=== PATIENT | female | born 1960 | race African-American/Black ===

== ENCOUNTER 2016-03-28 23:43 | Emergency (ER) | payer MEDICAID ==
[~2016-03-28] VITALS: Ht 160 cm; Wt 63.5 kg
[~2016-03-28 23:43] MED LIST: ALBU18
[2016-03-29 07:37] VITALS: BP 161/81
== END 2016-03-29 08:59 | disposition home or self-care (01) ==
LOC: ER 23:47
DX: M19.042 Primary osteoarthritis, left hand (principal); J45.909 Unspecified asthma, uncomplicated; I10 Essential (primary) hypertension; J44.9 Chronic obstructive pulmonary disease, unspecified; F17.210 Nicotine dependence, cigarettes, uncomplicated; Z79.899 Other long term (current) drug therapy
CPT/HCPCS: 73130

== ENCOUNTER 2016-10-18 17:27 | Emergency (ER) | payer MEDICAID ==
[~2016-10-18] VITALS: Ht 160 cm; Wt 59.0 kg
[2016-10-18] MEDS ORDERED: IBUPROFEN 600 MG TAB PO ONE (21:00)
[2016-10-18 21:03] VITALS: BP 126/82
== END 2016-10-18 21:08 | disposition home or self-care (01) ==
LOC: ER 17:53
DX: S90.32XA Contusion of left foot, initial encounter (principal); J45.909 Unspecified asthma, uncomplicated; I10 Essential (primary) hypertension; F17.210 Nicotine dependence, cigarettes, uncomplicated; W18.11XA Fall from or off toilet without subsequent striking against object, initial encounter; Y93.89 Activity, other specified; Y99.8 Other external cause status; Y92.89 Other specified places as the place of occurrence of the external cause
CPT/HCPCS: 73630

== ENCOUNTER 2017-11-26 22:22 | Emergency (ER) | payer MEDICAID, OTHER ==
[~2017-11-26] VITALS: Ht 160 cm; Wt 65.8 kg
[2017-11-26 22:45] VITALS: BP 177/78
== END 2017-11-27 01:20 | disposition left against medical advice (07) ==
LOC: ER 22:22
DX: M25.571 Pain in right ankle and joints of right foot (principal); Z53.21 Procedure and treatment not carried out due to patient leaving prior to being seen by health care provider

== ENCOUNTER 2018-03-02 23:19 | Emergency (ER) | payer MEDICAID ==
[~2018-03-02] VITALS: Ht 160 cm; Wt 61.2 kg
[2018-03-03] MEDS ORDERED: IPRATROPIUM BROM 0.5 MG/2.5ML INH SOL NEB ONE ×2 (02:00)
[2018-03-03] MEDS ORDERED: methylPREDNISolone SOD SUCC 125 MG/2 ML VL IM ONE (02:00)
[2018-03-03] MEDS ORDERED: ALBUTEROL SULF 2.5 MG/0.5ML(0.5%) NEB SOLN NEB ONE ×2 (02:00)
[2018-03-03 02:46] VITALS: BP 190/79
[2018-03-03] MEDS ORDERED: cloNIDine HCL 0.1 MG TAB ONE (02:57)
[2018-03-03] MEDS ORDERED: cloNIDine HCL 0.1 MG TAB PO ONE ×2 (03:00)
== END 2018-03-03 03:16 | disposition home or self-care (01) ==
LOC: ER 23:19
DX: J45.901 Unspecified asthma with (acute) exacerbation (principal); J06.9 Acute upper respiratory infection, unspecified; I10 Essential (primary) hypertension; F17.210 Nicotine dependence, cigarettes, uncomplicated
CPT/HCPCS: 93005; 94640; 96372; 99284; J2930; J7611; J7644

== ENCOUNTER 2018-10-14 06:39 | Emergency (ER) | payer MEDICAID ==
[~2018-10-14] VITALS: Ht 160 cm; Wt 63.5 kg
[2018-10-14] MEDS ORDERED: ALBUTEROL SULF 2.5 MG/0.5ML(0.5%) NEB SOLN NEB STA (06:52)
[2018-10-14] MEDS ORDERED: IPRATROPIUM BROM 0.5 MG/2.5ML INH SOL NEB ONE (07:00)
[2018-10-14 07:16] VITALS: BP 154/79
[2018-10-14] MEDS ORDERED: IPRATROPIUM BROM 0.5 MG/2.5ML INH SOL HHN ONE (07:30)
[2018-10-14] MEDS ORDERED: methylPREDNISolone SOD SUCC 125 MG/2 ML VL IV ONE (07:30)
[2018-10-14] MEDS ORDERED: ALBUTEROL SULF 2.5 MG/0.5ML(0.5%) NEB SOLN HHN ONE (07:30)
[2018-10-14 08:09] LABS: Albumin 3.2 g/dL (3.4-5.0); Calcium 8.9 mg/dL (8.5-10.1); Potassium 4.5 mmol/L (3.5-5.1)
[2018-10-14 08:17] LABS: BUN/Creatinine Ratio 19.1; Bilirubin, Total 0.5 mg/dL (0.2-1.0); Total Protein 7.1 g/dL (6.4-8.2)
== END 2018-10-14 09:11 | disposition home or self-care (01) ==
LOC: ER 06:39
DX: J45.909 Unspecified asthma, uncomplicated (principal); I10 Essential (primary) hypertension; F17.210 Nicotine dependence, cigarettes, uncomplicated
CPT/HCPCS: 36415; 71045; 80053; 93005; 94640; 94761; 96374; 99284; J2930; J7611; J7644; 94644

== ENCOUNTER 2019-04-05 15:42 | Emergency (ER) | payer MEDICAID ==
[2019-04-05] MEDS ORDERED: methylPREDNISolone SOD SUCC 125 MG/2 ML VL IV ONE (17:15)
[2019-04-05] MEDS ORDERED: SODIUM CHLORIDE 0.9% 1,000 ML IV ONE (17:15)
[2019-04-05] MEDS ORDERED: IPRATROPIUM BROM 0.5 MG/2.5ML INH SOL NEB ONE ×2 (17:15→18:30)
[2019-04-05] MEDS ORDERED: METOPROLOL TARTRATE 1MG/1ML-5ML VIAL IV ONE (17:15)
[2019-04-05] MEDS ORDERED: LEVALBUTEROL HCL 1.25 MG/3 ML NEB ONE (17:21)
[2019-04-05] MEDS ORDERED: LORazepam 2MG/ML-1ML VIAL IV ONE (17:30)
[2019-04-05] MEDS ORDERED: LEVALBUTEROL HCL 1.25 MG/3 ML NEB NEB ONE (17:30)
[2019-04-05 17:33] LABS: Hemoglobin 15.7 g/dL (12.2-16.2); Mean Corpuscular Hemoglobin 32.7 pg (28.0-32.0); Mean Corpuscular Hgb Conc. 34.1 g/dL (32.0-36.0); Mean Corpuscular Volume 95.9 fL (80.0-100.0); Platelet Count (auto) 281 10^3/uL (140-450); Red Blood Cells 4.79 10^6/uL (4.0-5.20); Red Cell Distribution Width 13.1 % (11.8-14.3); White Blood Cell 6.6 10^3/uL (4.4-10.8)
[2019-04-05 17:42] LABS: Band Neutrophils % (manual) 0; Basophils % (manual) 0 (0.0-2.0); Blast Cells 0; Metamyelocytes % 0; Myelocytes % 0; Promyelocytes % 0; Reactive Lymphocytes 0
[2019-04-05 17:51] LABS: Albumin 3.6 g/dL (3.4-5.0); Anion Gap 4 (5-15); Blood Urea Nitrogen 13 mg/dL (7-18); Carbon Dioxide 27 mmol/L (21-32); Chloride 108 mmol/L (98-107); Glucose 114 mg/dL (74-106); Potassium 4.1 mmol/L (3.5-5.1); Sodium 139 mmol/L (136-145)
[2019-04-05 17:57] LABS: Alanine Aminotransferase 31 U/L (13-56); Alkaline Phosphatase 78 U/L (45-117); Aspartate Aminotransferase 29 U/L (15-37); BUN/Creatinine Ratio 14.6; Bilirubin, Total 0.3 mg/dL (0.2-1.0); GFR African American 84 mL/min; GFR Non-African American 69 mL/min; Total Protein 7.8 g/dL (6.4-8.2)
[2019-04-05] MEDS ORDERED: LEVALBUTEROL HCL 1.25 MG/3 ML NEB NEB SCH (18:00)
[2019-04-05 18:10] LABS: Eosinophils % (manual) 13 (0-7); Lymphocytes % (manual) 41 (10.0-50.0); Monocytes % (manual) 7 (0-12)
[2019-04-05] MEDS ORDERED: cefTRIAXone 1GM/50ML D5W 50 ML IV ONE (18:30)
[2019-04-05] MEDS ORDERED: ALBUTEROL SULF 2.5 MG/0.5ML(0.5%) NEB SOLN NEB ONE (18:30)
[2019-04-05] MEDS ORDERED: AZITHROMYCIN 500MG/ 250ML 250 ML IV ONE (18:30)
[2019-04-05] MEDS ORDERED: IPRATROPIUM BROM 0.5 MG/2.5ML INH SOL ONE (18:32)
[2019-04-05] MEDS ORDERED: ALBUTEROL SULF 2.5 MG/0.5ML(0.5%) NEB SOLN ONE (18:32)
[2019-04-05 21:00] VITALS: BP 146/72
== END 2019-04-05 21:15 | disposition home or self-care (01) ==
LOC: ER 15:42
DX: J44.1 Chronic obstructive pulmonary disease with (acute) exacerbation (principal); F17.210 Nicotine dependence, cigarettes, uncomplicated; I10 Essential (primary) hypertension; Z98.51 Tubal ligation status
CPT/HCPCS: 36415; 71045; 80053; 84484; 85007; 85027; 93005; 94640; 94644; 96365; 96367; 96375; 99285; J0456; J0696; J2930; J7030; J7611; J7612; J7644

== ENCOUNTER 2019-10-12 19:58 | Emergency (ER) | payer MEDICAID ==
[~2019-10-12] VITALS: Ht 160 cm; Wt 65.8 kg
[2019-10-12] MEDS ORDERED: ALBUTEROL SULF 2.5 MG/0.5ML(0.5%) NEB SOLN NEB ONE (20:15)
[2019-10-12] MEDS ORDERED: IPRATROPIUM BROM 0.5 MG/2.5ML INH SOL NEB ONE (20:15)
[2019-10-12 20:18] VITALS: BP 150/68
[2019-10-12 21:22] LABS: Hemoglobin 14.5 g/dL (12.2-16.2)
[2019-10-12 21:29] LABS: Hematocrit 44.1 % (36.0-46.0); Mean Corpuscular Hemoglobin 32.4 pg (28.0-32.0); Mean Corpuscular Hgb Conc. 32.8 g/dL (32.0-36.0); Mean Corpuscular Volume 98.7 fL (80.0-100.0); Platelet Count (auto) 295 10^3/uL (140-450); Red Blood Cells 4.46 10^6/uL (4.0-5.20); Red Cell Distribution Width 13.8 % (11.8-14.3); White Blood Cell 6.2 10^3/uL (4.4-10.8)
[2019-10-12 21:36] LABS: Band Neutrophils % (manual) 0; Basophils % (manual) 0 (0.0-2.0); Blast Cells 0; Metamyelocytes % 0; Myelocytes % 0; Promyelocytes % 0; Reactive Lymphocytes 0
[2019-10-12 21:43] LABS: Albumin 3.3 g/dL (3.4-5.0); Calcium 8.7 mg/dL (8.5-10.1); Potassium 3.8 mmol/L (3.5-5.1)
[2019-10-12] MEDS ORDERED: methylPREDNISolone SOD SUCC 125 MG/2 ML VL IM ONE (21:45)
[2019-10-12] MEDS ORDERED: AZITHROMYCIN 500MG/ 250ML 250 ML IV ONE (21:45)
[2019-10-12] MEDS ORDERED: cefTRIAXone 1GM/50ML D5W 50 ML IV ONE (21:45)
[2019-10-12 21:47] LABS: BUN/Creatinine Ratio 19.6; Bilirubin, Total 0.3 mg/dL (0.2-1.0); Total Protein 6.9 g/dL (6.4-8.2)
[2019-10-12 22:15] LABS: Eosinophils % (manual) 13 (0-7); Lymphocytes % (manual) 33 (10.0-50.0); Monocytes % (manual) 8 (0-12)
[2019-10-12] MEDS ORDERED: cefTRIAXone SOD 1,000 MG VL ONE (23:56)
== END 2019-10-13 01:24 | disposition home or self-care (01) ==
LOC: ER 20:00
DX: J44.1 Chronic obstructive pulmonary disease with (acute) exacerbation (principal); I10 Essential (primary) hypertension; F17.210 Nicotine dependence, cigarettes, uncomplicated; Z98.51 Tubal ligation status
CPT/HCPCS: 36415; 71045; 80053; 83880; 84484; 85007; 85027; 93005; 94640; 96365; 96372; 99285; J0456; J0696; J2930; J7644

== ENCOUNTER 2021-09-30 17:04 | Emergency (ER) | payer MEDICAID ==
[~2021-09-30] VITALS: Ht 160 cm; Wt 113.0 kg
[2021-09-30] MEDS ORDERED: CYCLOBENZAPRINE HCL 10 MG TAB PO ONE (22:45)
[2021-09-30] MEDS ORDERED: KETOROLAC TROMETH 30 MG/ML 1ML VIAL IM ONE (22:45)
[2021-09-30 23:28] VITALS: BP 143/87
== END 2021-09-30 23:30 | disposition home or self-care (01) ==
LOC: ER 17:04
DX: G89.29 Other chronic pain (principal); M54.50 Low back pain, unspecified; I10 Essential (primary) hypertension; J44.9 Chronic obstructive pulmonary disease, unspecified; F17.210 Nicotine dependence, cigarettes, uncomplicated; Z79.899 Other long term (current) drug therapy
CPT/HCPCS: 93005; 96372; 99283; J1885

== ENCOUNTER 2021-10-06 07:27 | Emergency (ER) | payer MEDICAID ==
[~2021-10-06] VITALS: Ht 160 cm; Wt 68.2 kg
[2021-10-06 08:46] LABS: Urine Bacteria FEW /hpf (None Seen); Urine Blood Negative /uL (Negative); Urine Mucus FEW (None Seen); Urine Specific Gravity 1.025 (1.001-1.035); Urine WBC 60 /hpf (0 - 5)
[2021-10-06 09:47] LABS: Basophils # (auto) 0 10 ^3/uL (0-0.2); Basophils % (auto) 1.2 % (0.0-2.0); Eosinophils # (auto) 0.3 10 ^3/uL (0-0.8); Eosinophils % (auto) 6.6 % (0.0-7.0); Hematocrit 40.9 % (36.0-46.0); Hemoglobin 13.4 g/dL (12.2-16.2); Lymphocytes # (auto) 1.4 10 ^3/uL (0.4-5.4); Lymphocytes % (auto) 35.4 % (10.0-50.0); Mean Corpuscular Hgb Conc. 32.8 g/dL (32.0-36.0); Mean Corpuscular Volume 97.4 fL (80.0-100.0); Monocytes # (auto) 0.4 10 ^3/uL (0-1.3); Monocytes % (auto) 9.5 % (0.0-12.0); Neutrophils # (auto) 1.8 10 ^3/uL (1.6-8.6); Neutrophils % (auto) 47.3 % (37.0-80.0); Nucleated Red Blood Cells % 0.1 %; Red Cell Distribution Width 13.2 % (11.8-14.3); White Blood Cell 3.9 10^3/uL (4.4-10.8)
[2021-10-06 10:35] LABS: Calcium 8.9 mg/dL (8.5-10.1); Potassium 3.5 mmol/L (3.5-5.1)
[2021-10-06 10:41] LABS: Albumin 3.4 g/dL (3.4-5.0); BUN/Creatinine Ratio 9.3; Bilirubin, Total 0.5 mg/dL (0.2-1.0); Total Protein 7.2 g/dL (6.4-8.2)
[2021-10-06] MEDS ORDERED: KETOROLAC TROMETH 30 MG/ML 1ML VIAL IM ONE (11:20)
[2021-10-06 12:51] LABS: Lactic Acid w/Reflex 2.3 mmol/L (0.4-2.0)
[2021-10-06 14:28] LABS: Amphetamine Screen, Urine POSITIVE (NEGATIVE); Barbiturate Scree,Urine NEGATIVE (NEGATIVE); Benzodiazephine Screen, Urine NEGATIVE (NEGATIVE); Cannabinoid Screen, Urine NEGATIVE (NEGATIVE); Cocaine Screen, Urine NEGATIVE (NEGATIVE); Opiate Scree,Urine NEGATIVE (NEGATIVE); Phencyclidine Screen, Urine NEGATIVE (NEGATIVE)
[2021-10-06] MEDS ORDERED: NITR-87 PO (14:55)
[2021-10-06 19:30] VITALS: BP 168/65
== END 2021-10-06 19:30 | disposition home or self-care (01) ==
LOC: ER 07:27
DX: G89.29 Other chronic pain (principal); M54.50 Low back pain, unspecified; N39.0 Urinary tract infection, site not specified; F15.10 Other stimulant abuse, uncomplicated; I10 Essential (primary) hypertension; J44.9 Chronic obstructive pulmonary disease, unspecified; F17.210 Nicotine dependence, cigarettes, uncomplicated; Z79.899 Other long term (current) drug therapy
CPT/HCPCS: 36415; 74176; 80053; 80307; 81001; 83605; 83690; 84484; 85025; 93005

== ENCOUNTER 2021-12-22 08:13 | Inpatient (IN) | payer MEDICAID ==
[~2021-12-22] VITALS: Ht 160 cm; Wt 68.0 kg
[~2021-12-22 08:13] MED LIST changes: +NITR-87 PO
[2021-12-22] MEDS ORDERED: ALBUTEROL SULF 2.5 MG/0.5ML(0.5%) NEB SOLN HHN STA (08:16)
[2021-12-22] MEDS ORDERED: methylPREDNISolone SOD SUCC 125 MG/2 ML VL IV ONE (08:30)
[2021-12-22] MEDS ORDERED: IPRATROPIUM BROM 0.5 MG/2.5ML INH SOL HHN ONE (08:30)
[2021-12-22] MEDS ORDERED: ALBUTEROL SULF 2.5 MG/0.5ML(0.5%) NEB SOLN HHN ONE (08:30)
[2021-12-22] MEDS ORDERED: IPRATROPIUM BROM 0.5 MG/2.5ML INH SOL NEB ONE (08:30)
[2021-12-22 08:52] LABS: Hematocrit 42.9 % (36.0-46.0); Hemoglobin 14.3 g/dL (12.2-16.2); Mean Corpuscular Hgb Conc. 33.4 g/dL (32.0-36.0); Mean Corpuscular Volume 95.7 fL (80.0-100.0); Red Blood Cells 4.48 10^6/uL (4.0-5.20); White Blood Cell 5.1 10^3/uL (4.4-10.8)
[2021-12-22 08:57] LABS: Band Neutrophils % (manual) 0; Basophils % (manual) 0 (0.0-2.0); Blast Cells 0; Metamyelocytes % 0; Myelocytes % 0; Promyelocytes % 0; Reactive Lymphocytes 0
[2021-12-22 09:32] LABS: Potassium 4.3 mmol/L (3.5-5.1)
[2021-12-22 09:38] LABS: Albumin 3.3 g/dL (3.4-5.0); BUN/Creatinine Ratio 24.1; Bilirubin, Total 0.4 mg/dL (0.2-1.0); Calcium 8.8 mg/dL (8.5-10.1); Total Protein 7.1 g/dL (6.4-8.2)
[2021-12-22 10:48] LABS: Eosinophils % (manual) 19 (0-7); Lymphocytes % (manual) 11 (10.0-50.0); Monocytes % (manual) 10 (0-12)
[2021-12-22] MEDS ORDERED: MORPHINE SULFATE INJ 2 MG/ml SYRG IV PRN (12:00)
[2021-12-22] MEDS ORDERED: ONDANSETRON HCL 4 MG/2 ML VIAL IV PRN (12:00)
[2021-12-22] MEDS ORDERED: ACETAMINOPHEN 325 MG TAB PO PRN (12:00)
[2021-12-22] MEDS ORDERED: NITROGLYCERIN 0.4 MG SL TAB SL PRN (12:00)
[2021-12-22] MEDS: IPRATROPIUM BROM 0.5 MG/2.5ML INH SOL NEB SCH ×2 (12:50→20:58)
[2021-12-22] MEDS: ALBUTEROL SULF 2.5 MG/0.5ML(0.5%) NEB SOLN NEB SCH ×2 (12:50→20:58)
[2021-12-22 14:43] VITALS: BP 143/85
[2021-12-22] MEDS: DOXYCYCLINE 100 MG TAB/CAP PO SCH (16:51)
[2021-12-23 00:46] VITALS: BP 169/68
[2021-12-23] MEDS: methylPREDNISolone SOD SUCC 40 MG/ML VL IV SCH ×2 (00:56→09:30)
[2021-12-23] MEDS: DOXYCYCLINE 100 MG TAB/CAP PO SCH ×2 (00:56→09:30)
[2021-12-23] MEDS: hydrALAZINE HCL 10 MG TAB PO PRN ×2 (00:56→12:45)
[2021-12-23] MEDS ORDERED: IBUP600T27 PO (02:44)
[2021-12-23] MEDS ORDERED: CYCL-839 PO (02:44)
[2021-12-23] MEDS ORDERED: ACE3T PO (02:44)
[2021-12-23] MEDS ORDERED: CLON0.1T PO ×2 (02:44→13:50)
[2021-12-23 05:00] VITALS: BP 153/65
[2021-12-23] MEDS: ALBUTEROL SULF 2.5 MG/0.5ML(0.5%) NEB SOLN NEB SCH ×2 (06:32→12:17)
[2021-12-23] MEDS: IPRATROPIUM BROM 0.5 MG/2.5ML INH SOL NEB SCH ×2 (06:32→12:17)
[2021-12-23 08:55] VITALS: BP 157/60
[2021-12-23 12:40] VITALS: BP 175/65
[2021-12-23] MEDS ORDERED: ALBUAER3 IN (13:50)
[2021-12-23] MEDS ORDERED: PRED20TA2 PO (13:50)
[2021-12-23] MEDS ORDERED: AML5T PO (13:50)
[2021-12-23] MEDS ORDERED: DOXY-332 PO (13:50)
[2021-12-23] MEDS ORDERED: amLODIPine BESYLATE 5 MG TAB PO SCH (14:00)
[2021-12-23 15:56] VITALS: BP 162/78
[2021-12-23 16:39] VITALS: BP 165/63
== END 2021-12-23 16:30 | disposition home health service (06) | DRG 140 ==
LOC: ER 08:13 → TELE 11:56 → TELE-WESTW 23:35
PROVIDERS: ADMIT Internal Medicine; ATTEND Internal Medicine
DX: J44.1 Chronic obstructive pulmonary disease with (acute) exacerbation (principal); J45.901 Unspecified asthma with (acute) exacerbation; F17.210 Nicotine dependence, cigarettes, uncomplicated; G40.909 Epilepsy, unspecified, not intractable, without status epilepticus; I10 Essential (primary) hypertension; Z20.822 Contact with and (suspected) exposure to COVID-19; Z82.49 Family history of ischemic heart disease and other diseases of the circulatory system; Z83.3 Family history of diabetes mellitus; Z91.14 Patient's other noncompliance with medication regimen
CPT/HCPCS: 36415; 71045; 80053; 84484; 85007; 85027; 87426; 93005; 93306; 94640; 94644; 96374; 96375; G0378

== ENCOUNTER 2023-01-27 22:29 | Emergency (ER) | payer MEDICAID ==
[~2023-01-27] VITALS: Ht 160 cm; Wt 70.8 kg
[~2023-01-27 22:29] MED LIST changes: -ALBU18; +ALBUAER3 IN; +AML5T PO; +CLON0.1T PO; +DOXY-448 PO; -NITR-87 PO; +PRED20TA2 PO
[2023-01-28] MEDS ORDERED: HYDROcodone-ACET 5/325MG TAB PO ONE (02:00)
[2023-01-28] MEDS ORDERED: predniSONE 20 MG TAB PO ONE (02:00)
[2023-01-28] MEDS ORDERED: HYDR-4902 PO (02:59)
[2023-01-28 05:09] VITALS: BP 139/78; PULSE 77; RESP 18; TEMP 98; O2SAT 98
== END 2023-01-28 05:09 | disposition home or self-care (01) ==
LOC: ER 22:29
DX: S46.912A Strain of unspecified muscle, fascia and tendon at shoulder and upper arm level, left arm, initial encounter (principal); J44.9 Chronic obstructive pulmonary disease, unspecified; I10 Essential (primary) hypertension; F17.210 Nicotine dependence, cigarettes, uncomplicated; Z79.2 Long term (current) use of antibiotics; Z79.899 Other long term (current) drug therapy; X58.XXXA Exposure to other specified factors, initial encounter; Y93.89 Activity, other specified; Y92.89 Other specified places as the place of occurrence of the external cause; Y99.8 Other external cause status
CPT/HCPCS: 36415; 73030; 84484; 93005; 93971; 99285; J7512

== ENCOUNTER 2023-04-25 01:10 | Inpatient (IN) | payer MEDICAID ==
[~2023-04-25] VITALS: Ht 160 cm; Wt 72.6 kg
[~2023-04-25 01:10] MED LIST changes: +HYDR-4902 PO
[2023-04-25 05:11] LABS: Urine Bacteria NONE SEEN /hpf (None Seen); Urine Blood Negative /uL (Negative); Urine Clarity Clear (Clear); Urine Color Yellow (Yellow); Urine Protein, UAD Negative (Negative); Urine Specific Gravity 1.024 (1.001-1.035); Urine WBC 2 /hpf (0 - 5)
[2023-04-25] MEDS: ADENOSINE 6 MG/2 ML INJ IV ONE ×4 (06:14→06:24)
[2023-04-25] MEDS: ONDANSETRON HCL 4 MG/2 ML VIAL IV ONE (06:25)
[2023-04-25] MEDS: MORPHINE SULFATE 4 MG/ML SYR/VIAL IV ONE (06:26)
[2023-04-25 06:51] LABS: Basophils # (auto) 0 10 ^3/uL (0-0.2); Basophils % (auto) 0.6 % (0.0-2.0); Eosinophils # (auto) 0.2 10 ^3/uL (0-0.8); Eosinophils % (auto) 2.6 % (0.0-7.0); Hematocrit 43.6 % (36.0-46.0); Hemoglobin 14.5 g/dL (12.2-16.2); Lymphocytes # (auto) 2.6 10 ^3/uL (0.4-5.4); Lymphocytes % (auto) 34.9 % (10.0-50.0); Mean Corpuscular Hemoglobin 31.6 pg (28.0-32.0); Mean Corpuscular Hgb Conc. 33.2 g/dL (32.0-36.0); Mean Corpuscular Volume 95.3 fL (80.0-100.0); Monocytes # (auto) 0.7 10 ^3/uL (0-1.3); Monocytes % (auto) 8.7 % (0.0-12.0); Neutrophils % (auto) 53.2 % (37.0-80.0); Nucleated Red Blood Cells % 0.2 %; Red Blood Cells 4.58 10^6/uL (4.0-5.20); Red Cell Distribution Width 12.7 % (11.8-14.3); White Blood Cell 7.5 10^3/uL (4.4-10.8)
[2023-04-25] MEDS: ACETAMINOPHEN 500 MG TAB PO ONE (07:00)
[2023-04-25 07:15] LABS: Alanine Aminotransferase 21 U/L (7-40); Alkaline Phosphatase 86 U/L (46-116); Anion Gap 8 (5-15); Blood Urea Nitrogen 21 mg/dL (9-23); Calcium 9.1 mg/dL (8.7-10.4); Carbon Dioxide 23 mmol/L (20-30); Chloride 106 mmol/L (98-107); Glucose 113 mg/dL (74-106); Potassium 4.5 mmol/L (3.5-5.1); Sodium 137 mmol/L (136-145)
[2023-04-25 07:16] LABS: Albumin 4.2 g/dL (3.2-4.8); Aspartate Aminotransferase 25 U/L (13-40); BUN/Creatinine Ratio 25.3 (10.0-20.0); Bilirubin, Total 0.2 mg/dL (0.2-1.0); Total Protein 7.1 g/dL (5.7-8.2)
[2023-04-25 07:26] VITALS: PULSE 83; RESP 12; O2SAT 99
[2023-04-25] MEDS ORDERED: OFLOXACIN OTIC(EAR) 0.3 % DROP 5ML LEFT EAR ONE (10:00)
[2023-04-25] MEDS ORDERED: ONDANSETRON HCL 4 MG/2 ML VIAL IV PRN (12:45)
[2023-04-25] MEDS ORDERED: NITROGLYCERIN 0.4 MG SL TAB SL PRN (12:45)
[2023-04-25] MEDS ORDERED: MORPHINE SULFATE INJ 2 MG/ml SYRG IV PRN (12:45)
[2023-04-25 13:11] VITALS: BP 154/66; PULSE 70; RESP 16; O2SAT 97
[2023-04-25] MEDS: cefTRIAXone 1GM/50ML D5W 50 ML IV ONE (13:21)
[2023-04-25 13:51] LABS: Amphetamine Screen, Urine Pos (NEGATIVE); Barbiturate Scree,Urine Neg (NEGATIVE); Benzodiazephine Screen, Urine Neg (NEGATIVE); Cocaine Screen, Urine Neg (NEGATIVE); Opiate Scree,Urine Neg (NEGATIVE)
[2023-04-25 13:52] LABS: Cannabinoid Screen, Urine Neg (NEGATIVE); Phencyclidine Screen, Urine Neg (NEGATIVE)
[2023-04-25] MEDS ORDERED: ALBUTEROL MEDNEB 2.5 mg/3ml NEB NEB PRN (14:15)
[2023-04-25] MEDS: ACETAMINOPHEN 325 MG TAB PO PRN (14:47)
[2023-04-25] MEDS: cloNIDine HCL 0.1 MG TAB PO PRN (16:46)
[2023-04-25] MEDS: ALBUTEROL SULF 2.5 MG/0.5ML(0.5%) NEB SOLN NEB SCH (18:14)
[2023-04-25] MEDS: IPRATROPIUM BROM 0.5 MG/2.5ML INH SOL NEB SCH (18:14)
[2023-04-25 18:15] VITALS: PULSE 77; RESP 18; O2SAT 97
[2023-04-25 18:21] VITALS: PULSE 79; RESP 18; O2SAT 99
[2023-04-25 19:40] VITALS: PULSE 94; RESP 17; O2SAT 98
[2023-04-25] MEDS: METOPROLOL TARTRATE 25 MG TAB PO SCH (21:32)
[2023-04-25] MEDS: OFLOXACIN OTIC(EAR) 0.3 % DROP 5ML LEFT EAR SCH (21:32)
[2023-04-25] MEDS: FLUTICASONE PROP NASAL SPR 0.05 % (50MCG) 16GM EACHNOSTRI SCH (21:32)
[2023-04-26] VITALS (12 sets, daily range): BP systolic 135–170; BP diastolic 57–73; PULSE 55–78; RESP 17–20; TEMP 97.8–99.8; O2SAT 92–100
[2023-04-26] MEDS: guaiFENesin-CODEINE Liq 5 ML UD PO PRN (04:36)
[2023-04-26] MEDS: cefTRIAXone 1GM/50ML D5W 50 ML IV SCH (09:43)
[2023-04-26] MEDS: amLODIPine BESYLATE 5 MG TAB PO SCH (09:46)
[2023-04-26] MEDS ORDERED: FLUT1SPR5 (16:14)
[2023-04-26] MEDS ORDERED: OFL50TS LEFT EAR (16:14)
[2023-04-26] MEDS ORDERED: AML5T PO (16:14)
== END 2023-04-26 18:50 | disposition home or self-care (01) | DRG 201 ==
LOC: ER 01:10 → TELE 12:36 → TELE-WESTW 23:49
PROVIDERS: ADMIT Hospitalist; ATTEND Hospitalist
DX: I47.10 Supraventricular tachycardia, unspecified (principal); E11.9 Type 2 diabetes mellitus without complications; H60.92 Unspecified otitis externa, left ear; F15.10 Other stimulant abuse, uncomplicated; F17.210 Nicotine dependence, cigarettes, uncomplicated; F32.A Depression, unspecified; I10 Essential (primary) hypertension; J44.9 Chronic obstructive pulmonary disease, unspecified; H72.92 Unspecified perforation of tympanic membrane, left ear; Z98.51 Tubal ligation status; Z71.51 Drug abuse counseling and surveillance of drug abuser; Z91.148 Patient's other noncompliance with medication regimen for other reason; I47.19 Other supraventricular tachycardia; Z83.3 Family history of diabetes mellitus; Z82.49 Family history of ischemic heart disease and other diseases of the circulatory system
CPT/HCPCS: 36415; 70450; 71045; 80053; 80307; 81001; 83735; 83880; 84439; 84443; 84484; 85025; 93005; 93306; 94640; 96365; 96375; 99291; G0378; J0153; J2405

== ENCOUNTER 2024-09-04 04:42 | Emergency (ER) | payer MEDICAID ==
[~2024-09-04] VITALS: Ht 160 cm; Wt 71.3 kg
[~2024-09-04 04:42] MED LIST changes: -DOXY-448 PO; +FLUT1SPR5; +OFL50TS LEFT EAR; -PRED20TA2 PO
[2024-09-04 04:50] VITALS: TEMP 98.6
--- NOTE | 2024-09-04 04:58 | ED.PDOC ---
Back pain HPI HPI Comments PATIENT C/O LEFT LOWER BACK PAIN RADIATING DOWN LEFT GLUTE TO HER HAMSTRING, STARTING YESTERDAY. PATIENT STATES SHE HAS SCOLIOSIS AND A PINCHED NERVE IN HER BACK. DENIES ANY ACCIDENT OR INJURY. RATES PAIN 8/10 ON PAIN SCALE SHARP SHOOTING IN NATURE. PATIENT STATES HAS NOT TRIED ANY MEDICATIONS OR RELIEF MEASURES. DENIES NUMBNESS, WEAKNESS, LOSS OF BOWEL BLADDER CONTROL, OR SADDLE ANESTHESIA. PATIENT IS BLOOD PRESSURE ELEVATED ON EXAM 199/93. PATIENT REPORTS HISTORY OF BLOOD PRESSURE CURRENTLY ON LISINOPRIL UNKNOWN DOSAGE PATIENT STATES HAS BEEN WITHOUT MEDICATION X2 DAYS. DENIES HEADACHE, CHEST PAIN, SHORTNESS OF BREATH, NAUSEA, VOMITING, HEADACHE, DIZZINESS, SLURRED SPEECH, DIFFICULTY BREATHING. Chief Complaint: Back Pain Time Seen by MD: 04:49 Primary Care Provider: TROY Reviewed Notes: Nurses Notes, Medications, Allergies Allergies: Coded Allergies: NO KNOWN ALLERGIES (Unverified , 02/24/12) Home Meds Active Scripts Methocarbamol (Methocarbamol) 500 Mg Tab, 500 MG PO HS PRN for 7 Days, #7 TAB Prov:CARMEN GARCIA 09/04/24 Methylprednisolone (Medrol Dosepak) 4 Mg [place], 4 MG PO UD for 6 Days, #21 TAB UAD Prov:CARMEN GARCIA 09/04/24 Amlodipine Besylate (NORVASC TABLET) 5 Mg Tb, 1 TAB PO DAILY for 14 Days, #14 TAB Prov:CARMEN GARCIA 09/04/24 Fluticasone Propionate (Nasal) (Flonase Allergy Relief) 50 Mcg/Act Spr, 50 MCG NA BID, #1 SPRAY Prov:MATEO WHITE MD 04/26/23 Ofloxacin (Otic) (FLOXIN OTIC) [address], 5 DROP LEFT EAR BID, #1 DROP Prov:MATEO WHITE MD 04/26/23 Amlodipine Besylate (NORVASC TABLET) 5 Mg Tb, 5 MG PO DAILY, #60 TAB Prov:MATEO WHITE MD 04/26/23 Hydrocodone-Acetaminophen (Hydrocodone Bitartrate/AC 5-325 mg) 1 Tab Tab, 1 TAB PO Q6HR, #8 TAB as needed for pain Prov:TALIA DE LOS SANTOS Q RUBBER CUTTER 11/30/23 Albuterol Sulfate (VENTOLIN MDI) 90 Mcg Ih, 90 MCG IN Q6HPRN PRN, #1 INHALER Prov:LIONEL CINTRON MD 12/23/21 Clonidine Hydrochloride (Clonidine Hcl) 0.1 Mg Tab, 0.1 MG PO BID PRN, #60 MG Using home automated blood pressure machine, take dose only if systolic blood pressure or top number is above 160 mmhG Prov:LIONEL CINTRON MD 12/23/21 Information Source: Patient Past Medical History PAST MEDICAL HISTORY: Asthma, COPD, Depression, HTN, Seizures Surgical History: BTL BENCH EXAMINER History: No Pertinent BENCH EXAMINER History Family History Family History: Unobtainable Social History Smoker: Cigarettes, Less Than 1 Pack/Day Alcohol: Rarely Drugs: Marijuana Lives In: Home Constitutional: denies: chills, diaphoresis, fatigue, fever, malaise, sweats, weakness, others EENTM: denies: blurred vision, double vision, ear bleeding, ear discharge, ear drainage, ear pain, ear ringing, eye pain, eye redness, hearing loss, mouth pain, mouth swelling, nasal discharge, nose bleeding, nose congestion, nose pain, photophobia, tearing, throat pain, throat swelling, voice changes, others Respiratory: denies: cough, hemoptysis, orthopnea, SOB at rest, shortness of breath, SOB with excertion, stridor, wheezing, others Cardiovascular: denies: chest pain, dizzy spells, diaphoresis, Dyspnea on exertion, edema, irregular heart beat, left arm pain, lightheadedness, palpitat ions, PND, syncope, others Gastrointestinal: denies: abdomen distended, abdominal pain, blood streaked bow els, constipated, diarrhea, dysphagia, difficulty swallowing, hematemesis, melena, nausea, poor appetite, poor fluid intake, rectal bleeding, rectal pain, vomiting, others Genitourinary: denies: abnormal vagina bleeding, burning, dyspareunia, dysuria, flank pain, frequency, hematuria, incontinence, pain, , vagina discharge, urgency, others Neurological: denies: dizziness, fainting, headache, left sided numbness, left sided weakness, numbness, paresthesia, pre-existing deficit, right sided numbness, right sided weakness, seizure, speech problems, tingling, tremors, weakness, others Musculoskeletal: reports: back pain; denies: gout, joint pain, joint swelling, muscle pain, muscle stiffness, neck pain, others Integumetry: denies: bruises, change in color, change in hair/nails, dryness, laceration, lesions, lumps, rash, wounds, others Allergic/Immunocompromised: denies: Difficulty Healing, Frequent Infections, Hives, Itching, others Hematologic/Lymphatic: denies: anemia, blood clots, easy bleeding, easy bruising, swollen glands, others Endocrine: denies: excessive hunger, excessive sweating, excessive thirst, excessive urination, flushing, intolerance to cold, intolerance to heat, unexplained weight gain, unexplained weight loss, others Psychiatric: denies: anxiety, bipolar disorder, depression, hopeless, panic di sorder, schizophrenia, sleepless, suicidal, others Physical Exam General Appearance: No Apparent Distress, Normal HEENT: Normal ENT Inspection, Pharynx Normal, TMs Normal Neck: Full Range of Motion, Non-Tender Respiratory: Lungs Clear, No Respiratory Distress, Normal Breath Sounds Cardiovascular: No Edema, No JVD, No Murmur, No Gallop, Normal Peripheral Pulses, Regular Rate/Rhythm Breast Exam: Deferred Gastrointestinal: No Organomegaly, Non Tender, No Pulsatile Mass, Normal Bowel Sounds, Soft Genitalia: Deferred Pelvic: Deferred Rectal: Deferred Extremities: Normal range of motion, Non-tender, No pedal edema Musculoskeletal : Location: Left Extremity Location: Back (MODERATE TENDERNESS PALPATED OVER L4 THROUGH L5 LUMBAR SPINE WITHOUT CREPITUS OR STEP-OFFS TENDERNESS BILATERAL PARASPINAL MUSCLES. NEGATIVE STRAIGHT LEG RAISE BILATERAL. STRENGTH SENSORY AND MOTION INTACT. POSITIVE PEDAL PULSES.) Apperance: Normal Neurologic: Alert, No Motor Deficits, Normal Affect, Normal Mood, No Sensory Deficits Cerebellar Function: Normal Reflexes: Normal Skin: Dry, Normal Color, Warm Lymphatic: No Adenopathy Was a procedure done? Was a procedure done?: No Back Pain Differential Dx Differential Diagnosis: Fracture, Musculoskeletal Pain, Strain X-Ray, Labs, Meds, VS Vital Signs Date Time Temp Pulse Resp B/P (MAP) Pulse Ox O2 Delivery O2 Flow Rate FiO2 09/04/24 05:11 199/93 09/04/24 04:50 98.6 58 18 199/93 (128) 98 98.6 Current Medications Medications (Trade) Dose Ordered Sig/Jak Route Start Time Stop Time Status Last Admin Ketorolac Tromethamine (Toradol Injection) 30 mg ONCE ONCE IM 09/04/24 05:00 09/04/24 05:01 DC 09/04/24 05:10 Dexamethasone Sodium Phosphate (Decadron Injection) 10 mg ONCE ONCE IM 09/04/24 05:00 09/04/24 05:01 DC 09/04/24 05:10 Clonidine HCl (Catapres Tablet) 0.2 mg ONCE ONCE PO 09/04/24 05:00 09/04/24 05:01 DC 09/04/24 05:11 X-Ray, Labs, Meds, VS Comment Lumbago - - - Patient given Toradol 30 mg IM and Decadron 10 mg IM. Patient reports improvement in pain rates it 1/10 on pain scale requesting discharge at this time. Script trial of Medrol Dosepak and methocarbamol advised to take medications as prescribed side effects discussed. Advised on alternate between ice and heat. Follow up with your PCP within 2-3 days consider referral for pain management physical therapy. ER precautions discussed for increasing pain, weakness, numbness, saddle anesthesia, loss of bowel or bladder control. Patient indicates understanding agrees with discharge plan of care. Hypertension- - - -REPEAT BP 164/83 AFTER CLONIDINE 0.2MG. script refill of amlodipine 5 mg once daily. Advised to take medications as prescribed side effects discussed. Advised to follow up with her PCP for further refills. Advised patient on the importance of keeping her blood pressure medication refilled. Discussed ER return precautions for chest pain, difficulty breathing, shortness of breath, weakness, numbness, slurred speech or any concerning symptoms. Time of 1ST Reevaluation: 04:57 Reevaluation 1ST: Unchanged Time of 2ND Reevaluation: 06:03 Reevaluation 2ND: Improved Patient Education/Counseling: Diagnosis, Treatment, Prognosis, Need For Follow Up Family Education/Counseling: No Family Present SEPSIS Sepsis Screen Vital Signs Date Time Temp Pulse Resp B/P (MAP) Pulse Ox O2 Delivery O2 Flow Rate FiO2 09/04/24 05:11 199/93 09/04/24 04:50 98.6 58 18 199/93 (128) 98 98.6 Medications Medications Dose Ordered Sig/Jak Route Start Time Stop Time Status Last Admin Dose Admin Clonidine HCl 0.2 mg ONCE ONCE PO 09/04/24 05:00 09/04/24 05:01 MT 09/04/24 05:11 Dexamethasone Sodium Phosphate 10 mg ONCE ONCE IM 09/04/24 05:00 09/04/24 05:01 MT 09/04/24 05:10 Ketorolac Tromethamine 30 mg ONCE ONCE IM 09/04/24 05:00 09/04/24 05:01 MT 09/04/24 05:10 Departure 1 Departure Time of Disposition: 06:08 Impression: Primary Impression: Lumbago without sciatica Qualified Codes: M54.50 - Low back pain, unspecified Additional Impressions: Scoliosis Qualified Codes: M41.9 - Scoliosis, unspecified Hypertension Qualified Codes: I10 - Essential (primary) hypertension Disposition: 01 HOME / SELF CARE / HOMELESS Condition: Stable e-Prescriptions Methocarbamol (Methocarbamol) 500 Mg Tab 500 MG PO HS PRN for 7 Days, #7 TAB Prov: CARMEN GARCIA 09/04/24 Methylprednisolone (Medrol Dosepak) 4 Mg [place] 4 MG PO UD for 6 Days, #21 TAB UAD Prov: CARMEN GARCIA 09/04/24 Amlodipine Besylate (NORVASC TABLET) 5 Mg Tb 1 TAB PO DAILY for 14 Days, #14 TAB Prov: CARMEN GARCIA 09/04/24 Discharged With: Self Critical Care Note Critical Care Time?: No Stability Stability form required: CARMEN Santizo Sep 04, 2024 04:58
[2024-09-04] MEDS: KETOROLAC TROMETH 60MG/2ML VIAL IM ONE (05:10)
[2024-09-04] MEDS ORDERED: AML5T PO (06:00)
[2024-09-04] MEDS ORDERED: METH4PAK PO (06:00)
[2024-09-04] MEDS ORDERED: METH-1181 PO (06:00)
[2024-09-04 06:09] VITALS: BP 162/84
[2024-09-04 06:38] VITALS: PULSE 50; RESP 13; O2SAT 98
== END 2024-09-04 06:41 | disposition home or self-care (01) ==
LOC: ER 04:42
DX: M54.42 Lumbago with sciatica, left side (principal); M41.9 Scoliosis, unspecified; I10 Essential (primary) hypertension; F17.210 Nicotine dependence, cigarettes, uncomplicated; F12.90 Cannabis use, unspecified, uncomplicated; J44.89 Other specified chronic obstructive pulmonary disease; F10.90 Alcohol use, unspecified, uncomplicated; J45.909 Unspecified asthma, uncomplicated; F32.A Depression, unspecified; Z98.51 Tubal ligation status; Z79.899 Other long term (current) drug therapy; Y90.9 Presence of alcohol in blood, level not specified
CPT/HCPCS: 96372; 99284; J1100; J1885